=== PATIENT | male | born 1965 | race Caucasian/White ===

== ENCOUNTER 2017-10-09 06:53 | Day surgery (SDC) | payer OTHER ==
[~2017-10-09 06:53] MED LIST: Lactated Ringers 1,000 ML IV SCH
[2017-10-09] MEDS ORDERED: fentaNYL 100 MCG/2 ML SDV ONE ×2 (07:41→10:57)
[2017-10-09] MEDS ORDERED: Propofol 200 MG/20 ML SDV ONE ×2 (07:41→10:57)
[2017-10-09] MEDS ORDERED: Midazolam 1 MG/ML 2 ML SDV ONE ×2 (07:41→10:57)
[2017-10-09] MEDS ORDERED: Sodium Phosphate,Monobasic/Sodium Phosphate,Dibasic Enema 133 ML Bottle RECTAL ONE (08:34)
[2017-10-09 12:36] VITALS: BP 105/67
--- NOTE | 2017-10-09 20:53 | OR ---
COLONOSCOPY REPORT DATE OF SURGERY: 10/09/2017. REFERRING PROVIDER: Mayte Bravo PA-C. PRE-OPERATIVE DIAGNOSES: Screening colonoscopy. This is the patient's first colonoscopy. There is also a positive family history of colon cancer in father, which had previously been documented as just colon polyps. Apparently, one was a cancerous polyp. POST-OPERATIVE DIAGNOSES: Two colon polyps were removed. A. The 3-mm polyp at 65 cm, removed with cold forceps. B. The 5-mm polyp at 12 cm was removed with hot snare. PROCEDURE: Colonoscopy with polypectomy x2 (one using cold forceps and one using hot snare). SURGEON: Tho Sandoval M.D. ANESTHESIA: Monitored anesthesia care. BOWEL PREP: Initially poor with multiple pieces of corn present. I did remove the scope and I had the patient do Fleet Enema and added the patient later on in the morning; repeated procedure, and this went well, although still a few residual pieces of corn were present. Eduardo is a 52-year-old male, who was brought to the endoscopy suite after discussing risks and benefits of the procedure. Informed consent was obtained for conscious sedation and colonoscopy with or without biopsy and/or polypectomy. We also discussed possibility of missed lesions. Pre-procedure exam was unremarkable. IV, oxygen, and monitors were placed. The patient was placed in the left lateral decubitus position. Sedation was administered and a digital rectal exam was performed, which was unremarkable. Colonoscope was passed into the rectum and slowly advanced all the way to the cecum. Cecum was viewed and photographed. The colonoscope was slowly withdrawn and the mucosa was closed observed in a direct circumferential manner. The ascending colon was unremarkable. The transverse colon was remarkable for a 3-mm polyp at 65 cm, removed with cold forceps. The descending colon was unremarkable. The sigmoid colon was unremarkable except for a 5-mm polyp at the rectosigmoid junction of about 12 cm, which was removed with hot snare. Retroflexion was performed and the remainder of rectal mucosa was unremarkable. Scope was removed. The patient tolerated the procedure well. The patient was monitored until that baseline status. Discharge instructions were reviewed and the patient was discharged in good condition. COMPLICATIONS: None. TOTAL TIME: Twenty minutes. ESTIMATED BLOOD LOSS: About 1 mL. RECOMMENDATIONS/FOLLOW-UP: We will await results of pathology report to determine ideal followup interval. I am guessing, he will probably repeat in five years, given the polyps present today as well as the family history of colon cancer in father. I would like to kindly thank Mayte Bravo for this referral. DMB: 10/09/2017 13:56:49 MODL: 10/09/2017 20:46:32 /[id number]
== END 2017-10-09 12:37 | disposition home or self-care (01) ==
LOC: VM.SDS 06:53
PROVIDERS: ATTEND Family Medicine
DX: Z12.11 Encounter for screening for malignant neoplasm of colon (principal); D12.5 Benign neoplasm of sigmoid colon; K63.5 Polyp of colon; E78.2 Mixed hyperlipidemia; E66.9 Obesity, unspecified; R73.01 Impaired fasting glucose; Z90.49 Acquired absence of other specified parts of digestive tract; Z80.0 Family history of malignant neoplasm of digestive organs; Z98.890 Other specified postprocedural states; Z79.899 Other long term (current) drug therapy
CPT/HCPCS: 45380; 45385; A9270; J2250; J2704; J3010; J7120